=== PATIENT | male | born 1980 | race Caucasian/White ===

== ENCOUNTER 2020-10-14 13:36 | Day surgery (SDC) | payer BC ==
[~2020-10-14] VITALS: Ht 180.3 cm; Wt 124.1 kg
[~2020-10-14 13:36] MED LIST: ERYT.5TO OU; HYDACE5 PO; IBUP800 PO; LORA1 PO; METPRE4DP PO; NAPR500 PO; NAPR550 PO; OXYACE5T PO; RXHYDACE PO; VALP250 PO
--- NOTE | 2020-10-14 14:16 | NUR ---
10/14/20 1416 Iva Tellez 1ST I.V. ATTEMPT IN RIGHT FOREARM BY GERONIMO 2ND I.V. ATTEMPT IN RIGHT HAND BY GERONIMO 3RD I.V. ATTEMPT IN RIGHT FOREARM BY OPAL
--- NOTE | 2020-10-14 15:31 | NUR ---
10/14/20 1531 RUSLAN CASTELLANO USED IN PROCEDURE.
== END 2020-10-14 16:16 | disposition home or self-care (01) ==
LOC: ORSCSDS 13:36
DX: K62.5 Hemorrhage of anus and rectum (principal); K29.50 Unspecified chronic gastritis without bleeding; K62.1 Rectal polyp; K63.5 Polyp of colon; I10 Essential (primary) hypertension; Z87.891 Personal history of nicotine dependence
CPT/HCPCS: 88305; 88312; 88342; J2001; J2250; J2405; J2704; J7120